=== PATIENT | female | born 1955 | race Caucasian/White ===

== ENCOUNTER 2017-11-04 15:13 | Emergency (ER) | payer BC ==
[2017-11-04 16:59] VITALS: BP 139/63
--- NOTE | 2017-11-04 17:06 | UC ---
Skin Complaint HPI - HPI Summary HPI Summary: 62 yo female presents with rash to right inguinal region. She tells me that she was bitten by a tick in this area 1 week ago. She removed the tick and is confident it was on her LESS than 12 hours. Says it was not engorged. 2 days ago she noticed a flat red rash that is mildly itchy to this area. Admits that she has been sweating a lot with hot yoga, working out, and the warmer weather recently. Denies fever, chills, headache, fatigue, or joint pain. 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 Onset/Duration: Sudden Onset Current Severity: None Pain Intensity: 0 - Allergy/Home Medications Allergies/Adverse Reactions: Allergies Allergy/AdvReac Type Severity Reaction Status Date / Time Anesthesia Allergy See Comment Uncoded 11/04/17 16:59 Review of Systems Constitutional: Negative Skin: Rash Respiratory: Negative Cardiovascular: Negative Neurovascular: Negative Neurological: Negative Psychological: Negative All Other Systems Reviewed And Are Negative: Yes PMH/Surg Hx/FS Hx/Imm Hx - Additional Past Medical History Additional PMH: None - Surgical History Surgical History: Yes Surgery Procedure, Year, and Place: Tonsils - Family History Known Family History: Negative: Cardiac Disease, Hypertension, Diabetes - Social History Occupation: Employed Full-time Lives: With Family Alcohol Use: Occasionally Substance Use Type: None Smoking Status (MU): Former Smoker Physical Exam - Summary Physical Exam Summary: GENERAL: NAD. WDWN. No pain distress. SKIN: Right inguinal region: Flat erythematous dry patch 4.0cm in diameter along inguinal fold. NTTP. No central clearing or bull's eye. No edema, drainage , or open wound. NECK: Supple. Nontender. No lymphadenopathy. CHEST: No accessory muscle use. Breathing comfortably and in no distress. CV: Pulses intact. Cap refill <2seconds NEURO: Alert. PSYCH: Age appropriate behavior. Triage Information Reviewed: Yes Vital Signs: Initial Vital Signs Temp 98.6 F 11/04/17 16:53 Pulse 71 11/04/17 16:53 Resp 16 11/04/17 16:53 BP 139/63 11/04/17 16:53 Pulse Ox 100 11/04/17 16:53 Vital Signs Reviewed: Yes Course/Dx - Course Course Of Treatment: Suspect skin yeast infection - Diagnoses Provider Diagnoses: Skin yeast infection Discharge - Sign-Out/Discharge Documenting (check all that apply): Patient Departure All imaging exams completed and their final reports reviewed: No Studies - Discharge Plan Condition: Stable Disposition: HOME Prescriptions: Nystatin CREAM* [Nystatin Cream*] 1 applic TOPICAL BID #1 tube Patient Education Materials: Skin Yeast Infection (ED) Referrals: Lynn Duncan MD [Primary Care Provider] - Additional Instructions: If you develop a fever, shortness of breath, chest pain, new or worsening symptoms - please call your PCP or go to the ED. - Billing Disposition and Condition Condition: STABLE Disposition: Home - Attestation Statements Provider Attestation: I was available for consult. This patient was seen by the LISSETH. The patient was not presented to, seen by, or examined by me. -Sarkis
== END 2017-11-04 17:32 | disposition home or self-care (01) ==
LOC: UCEAST 15:13
CPT/HCPCS: 99212; G0463

== ENCOUNTER 2017-11-06 10:00 | Emergency (ER) | payer BC ==
[2017-11-06 10:54] VITALS: BP 148/70
--- NOTE | 2017-11-06 11:33 | UC ---
Skin Complaint HPI - HPI Summary HPI Summary: SEEN HERE 2 DAYS AGO WITH A RED RASH IN HER RIGHT GROIN. DIAGNOSED WITH SKIN YEAST INFECTION AND GIVEN TOPICAL NYSTATIN. PATIENT REPORTS IT IS NOT IMPROVING. REDNESS HAS EXPANDED AND HAS INCREASED DISCOMFORT. NO FEVERS OR DRAINAGE. 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 Onset/Duration: Gradual Onset, Lasting Days, Still Present Timing: Constant Onset Severity: Mild Current Severity: Moderate Pain Intensity: 2 Pain Scale Used: 0-10 Numeric Location: Discrete - RIGHT GROIN Character: Pain, Redness, Raised Aggravating Factor(s): Touch Alleviating Factor(s): Nothing Associated Signs & Symptoms: Positive: Rash, Tenderness - Allergy/Home Medications Allergies/Adverse Reactions: Allergies Allergy/AdvReac Type Severity Reaction Status Date / Time Anesthesia Allergy See Comment Uncoded 11/06/17 10:55 Review of Systems Constitutional: Negative Skin: Rash Respiratory: Negative Cardiovascular: Negative Gastrointestinal: Negative All Other Systems Reviewed And Are Negative: Yes PMH/Surg Hx/FS Hx/Imm Hx Previously Healthy: Yes - Surgical History Surgical History: Yes Surgery Procedure, Year, and Place: Tonsils - Family History Known Family History: Negative: Cardiac Disease, Hypertension, Diabetes - Social History Alcohol Use: Occasionally Substance Use Type: None Smoking Status (MU): Former Smoker Physical Exam Triage Information Reviewed: Yes Appearance: Well-Appearing, No Pain Distress, Well-Nourished Vital Signs: Initial Vital Signs Temp 98.2 F 11/06/17 10:52 Pulse 73 11/06/17 10:52 Resp 16 11/06/17 10:52 BP 148/70 11/06/17 10:52 Pulse Ox 100 11/06/17 10:52 Vital Signs Reviewed: Yes Eyes: Positive: Conjunctiva Clear ENT: Positive: Hearing grossly normal Neck: Positive: Supple Respiratory: Positive: No respiratory distress, No accessory muscle use Cardiovascular: Positive: Pulses Normal Abdomen Description: Positive: Soft Musculoskeletal: Positive: No Edema Neurological: Positive: Alert Psychological: Positive: Age Appropriate Behavior Skin: Positive: rashes - ERYTHEMA WITH INDURATION RIGHT GROIN ENCOMPASSING RIGHT LABIA DOWN TO PERINEUM. NO FLUCTUANCE. Course/Dx - Diagnoses Provider Diagnoses: CELLULITIS RIGHT GROIN Discharge - Sign-Out/Discharge Documenting (check all that apply): Patient Departure All imaging exams completed and their final reports reviewed: No Studies - Discharge Plan Condition: Stable Disposition: HOME Prescriptions: Cephalexin CAP* [Keflex 500 CAP*] 1,000 mg PO BID #40 cap Patient Education Materials: Cellulitis (ED) Referrals: Lynn Duncan MD [Primary Care Provider] - If Needed Additional Instructions: YOU APPEAR TO HAVE A CELLULITIS (SKIN INFECTION) IN YOUR RIGHT GROIN. STOP NYSTATIN. START KEFLEX TWICE DAILY FOR 10 DAYS. HOT COMPRESSES 4 TIMES DAILY. IBUPROFEN NEEDED FOR DISCOMFORT. SEEK FOLLOW-UP IF YOU ARE NOT NOTICING IMPROVEMENT OVER THE NEXT 48 HOURS. - Billing Disposition and Condition Condition: STABLE Disposition: Home
== END 2017-11-06 11:37 | disposition home or self-care (01) ==
LOC: UCEAST 10:00
DX: L03.314 Cellulitis of groin (principal); Z88.4 Allergy status to anesthetic agent
CPT/HCPCS: 99212; G0463

== ENCOUNTER 2017-12-01 09:05 | Emergency (ER) | payer BC ==
[2017-12-01 09:15] VITALS: BP 148/74
--- NOTE | 2017-12-01 10:00 | UC ---
Skin Complaint HPI - HPI Summary HPI Summary: 62 yo patient who c/o red area on her right leg after a tick which was dx as a cellulitis and completed a 10 day course of keflex about 10 days ago. Initially treated for a yeast infection. Redness is recurring, denies itch, burn, chills or fever. Has a sensation of 'warmth' and has seen the redness progress. States she had Lyme's disease in the past and was treated with doxy for 8 weeks. 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 ?: No Onset/Duration: Sudden Onset, Lasting Days Skin Exposure Onset/Duration: Weeks Ago Onset Severity: Mild Current Severity: None Pain Intensity: 0 Location: Discrete Character: Redness Aggravating Factor(s): Nothing Alleviating Factor(s): Nothing Associated Signs & Symptoms: Positive: Negative Related History: Possible Reaction to: Insect - Allergy/Home Medications Allergies/Adverse Reactions: Allergies Allergy/AdvReac Type Severity Reaction Status Date / Time Anesthesia Allergy See Comment Uncoded 12/01/17 09:16 Home Medications: Home Medications Ascorbic Acid [Eql Vitamin C] 1,000 mg PO DAILY 12/01/17 [History Confirmed ] Cholecalciferol (Vitamin D3) [Vitamin D3] 2,000 unit PO DAILY 12/01/17 [History Confirmed 12/01/17] Review of Systems Skin: Rash All Other Systems Reviewed And Are Negative: Yes PMH/Surg Hx/FS Hx/Imm Hx Previously Healthy: Yes - Surgical History Surgical History: Yes Surgery Procedure, Year, and Place: Tonsils - Family History Known Family History: Negative: Cardiac Disease, Hypertension, Diabetes - Social History Alcohol Use: Occasionally Substance Use Type: None Smoking Status (MU): Former Smoker Physical Exam Triage Information Reviewed: Yes Appearance: Well-Appearing, No Pain Distress, Well-Nourished Vital Signs: Initial Vital Signs Temp 97.5 F 12/01/17 09:11 Pulse 66 12/01/17 09:11 Resp 18 12/01/17 09:11 BP 148/74 12/01/17 09:11 Pulse Ox 100 12/01/17 09:11 Vital Signs Reviewed: Yes Eyes: Positive: Conjunctiva Clear ENT: Positive: Hearing grossly normal Neck: Positive: Supple, Nontender, No Lymphadenopathy Respiratory: Positive: Chest non-tender, Lungs clear, Normal breath sounds, No respiratory distress Cardiovascular: Positive: RRR, No Murmur, Pulses Normal, Brisk Capillary Refill Abdomen Description: Positive: Nontender, No Organomegaly, Soft Musculoskeletal: Positive: Strength Intact, ROM Intact, No Edema Skin Exam: Other - demarcated area of erythema involving right inner thigh and buttock. No vesicles, no raised lesions, no weeping or discharge. Non tender to palpation Course/Dx - Course Course Of Treatment: Patient with area of erythema on right groin area and buttock with delineation that is progressing, history of tick bite in the area, remote history of Lyme's disease in the past, to start doxy for 2 weeks as prescribed. F/u with PCP , should see improvement in 48 hr. CBC COMP and Lyme Serology ordered, pending results - Diagnoses Provider Diagnoses: cellulitis. Elevated BP without dx of HTN Discharge - Sign-Out/Discharge Documenting (check all that apply): Patient Departure All imaging exams completed and their final reports reviewed: No Studies - Discharge Plan Condition: Stable Disposition: HOME Referrals: Lynn Duncan MD [Primary Care Provider] - - Billing Disposition and Condition Condition: STABLE Disposition: Home
[2017-12-01 14:32] LABS: ABS Basophils 0.1 10^3/ul (0-0.2); ABS Eosinophils 0.1 10^3/ul (0-0.6); ABS Lymphocytes 1.3 10^3/ul (1.0-4.8); ABS Monocytes 0.4 10^3/ul (0-0.8); ABS Neutrophils 3.3 10^3/ul (1.5-7.7); ABS Nucleated RBC 0 10^3/ul; Eosinophil % 2.8 % (0-6); Hematocrit 42 % (35-47); Lymphocyte % 24.5 % (25-47); Mean Corpuscular HGB Conc 33 g/dl (31-36); Mean Corpuscular Hemoglobin 29 pg (27-31); Mean Corpuscular Volume 87 fL (80-97); Mean Platelet Volume 8.6 um3 (7.4-10.4); Nucleated Red Blood Cells % 0.1; Platelet Count 179 10^3/ul (150-450); Red Blood Count 4.82 10^6/ul (4.00-5.40); Red Cell Distribution Width 14 % (10.5-15); White Blood Count 5.1 10^3/ul (3.5-10.8)
[2017-12-01 14:43] LABS: EGFR Non-African American 88.9 (>60)
--- NOTE | 2017-12-04 15:37 | UC ---
- Progress Note Progress Note: Lyme positive. She was treated with 2 weeks of doxy at visit. Please let pt know - there are still confirmatory tests pending. She should f/u with her PCP as instructed at last OV Discharge - Sign-Out/Discharge Documenting (check all that apply): Post-Discharge Follow Up All imaging exams completed and their final reports reviewed: No Studies - Discharge Plan Condition: Stable Disposition: HOME Prescriptions: DOXYcycline CAP(*) [DOXYcycline 100MG CAP(*)] 100 mg PO BID 7 Days #14 cap DOXYcycline CAP(*) [DOXYcycline 100MG CAP(*)] 100 mg PO BID 14 Days #28 cap Patient Education Materials: Doxycycline (By mouth), Cellulitis (ED) Referrals: Lynn Duncan MD [Primary Care Provider] - - Billing Disposition and Condition Condition: STABLE Disposition: Home
== END 2017-12-01 10:28 | disposition home or self-care (01) ==
LOC: UCEAST 09:05
DX: L03.115 Cellulitis of right lower limb (principal); R03.0 Elevated blood-pressure reading, without diagnosis of hypertension; Z88.8 Allergy status to other drugs, medicaments and biological substances; Z87.891 Personal history of nicotine dependence; Z86.19 Personal history of other infectious and parasitic diseases
CPT/HCPCS: 36415; 80053; 85025; 86617; 86618; 99212; G0463